=== PATIENT | female | born 1960 | race African-American/Black ===

== ENCOUNTER 2018-10-29 05:39 | Inpatient (IN) | payer OTHER, MEDICAID ==
[~2018-10-29] VITALS: Ht 165.1 cm; Wt 68.0 kg
[2018-10-29] MEDS ORDERED: IPRATROPIUM BROMIDE (0.02%) 0.5MG/2.5ML NEB HHN STA (06:22)
[2018-10-29] MEDS ORDERED: METHYLPREDNISOLONE SOD SUCC 125 MG/2 ML VIAL IV STA (06:22)
[2018-10-29] MEDS ORDERED: ALBUTEROL (0.083%) 2.5MG/3ML NEB HHN STA (06:22)
[2018-10-29 07:09] LABS: BASOPHILS % 0.4 % (0.0-2.0); EOSINOPHILS % 0.5 % (0.0-5.0); HEMATOCRIT. 41.1 % (36.0-48.0); HEMOGLOBIN. 13.2 g/dL (12.0-16.0); LYMPHOCYTES % 11.6 % (20.0-50.0); MEAN CORPUSCULAR HEMOGLOBIN 26.7 pg (28.0-32.0); MEAN CORPUSCULAR VOLUME 83.2 fL (81.0-99.0); MONOCYTES % 7.6 % (2.0-8.0); NEUTROPHILS % 79.9 % (40.0-76.0); PLATELET 183 x1000/uL (130-400); RED BLOOD CELL COUNT 4.94 mill/uL (4.2-5.4); RED CELL DISTRIBUTION WIDTH 15.4 % (11.6-14.6)
[2018-10-29 07:15] LABS: CHLORIDE 109 mEq/L (98-107)
[2018-10-29] MEDS ORDERED: ASPIRIN 81MG TABLET PO ONE (07:45)
[2018-10-29] MEDS ORDERED: ENOXAPARIN 100MG/ML SYR SUBCUT ONE (07:45)
[2018-10-29 11:30] VITALS: BP 137/89
[2018-10-29] MEDS ORDERED: FLUT1BLS3 IH (11:31)
[2018-10-29 11:53] VITALS: BP 137/89
[2018-10-29] MEDS ORDERED: CLONIDINE 0.1MG TABLET PO PRN (13:30)
[2018-10-29] MEDS ORDERED: HYDROCODONE/ACETAMINOPHEN 5/325MG TABLET PO PRN (13:30)
[2018-10-29] MEDS ORDERED: ONDANSETRON HCL 4MG/2ML INJ IV PRN (13:30)
[2018-10-29] MEDS ORDERED: DIPHENHYDRAMINE 50MG/ML VIAL IV PRN (13:30)
[2018-10-29] MEDS ORDERED: IPRATROPIUM/ALBUTEROL 0.5-3(2.5)MG/3ML NEB INH PRN (13:30)
[2018-10-29] MEDS ORDERED: MAGNESIUM/ALUMINUM HYDROXIDE/SIMETHICONE 30ML UDC PO PRN (13:30)
[2018-10-29] MEDS ORDERED: ACETAMINOPHEN 325MG TABLET PO PRN (13:30)
[2018-10-29] MEDS ORDERED: ACETAMINOPHEN 650MG SUPP PR PRN (13:30)
[2018-10-29] MEDS ORDERED: NA PHOS,M-B/NA PHOS,DI-BA ENEMA 118ML PR PRN (13:30)
[2018-10-29] MEDS ORDERED: DOCUSATE SODIUM 100MG CAPSULE PO PRN (13:30)
[2018-10-29] MEDS: DILTIAZEM HCL 30MG TABLET PO SCH ×2 (14:17→21:30)
[2018-10-29] MEDS: ENOXAPARIN 40MG/0.4ML SYR SUBCUT SCH (14:19)
[2018-10-29] MEDS: LORATADINE 10MG TABLET PO SCH (14:19)
[2018-10-29] MEDS: METHYLPREDNISOLONE SOD SUCC 40 MG/ML VIAL IV SCH ×2 (14:20→21:30)
[2018-10-29 16:00] VITALS: BP 112/74
[2018-10-29] MEDS: MONTELUKAST SODIUM 10MG TABLET PO SCH (17:50)
[2018-10-29] MEDS: LEVOFLOXACIN 500MG PREMIX 100 ML IV SCH (17:50)
[2018-10-29 18:15] LABS: CREATINE KINASE MB FRACTION 3.6 ng/mL (0.5-3.6)
[2018-10-29 18:17] LABS: BG BASE EXCESS -1.9 mmol/L (-2.0-2.0); BG DEOXYHEMOGLOBIN 6.6 % (0.0-5.0); BG FRACTION INSPIRED OXYGEN 21; BG HCO3 ACT 21.6 mmol/L (22.0-26.0); BG METHEMOGLOBIN 0.4 % (0.0-1.5); BG OXYGEN SATURATION 93.3 % (92.0-98.5); BG PH 7.433 (7.350-7.450); BG SAMPLE SITE RIGHT BRACHIAL; BG TOTAL HEMOGLOBIN 14.1 g/dL (12.0-18.0); BG VENT MODE ROOM AIR
[2018-10-29 20:00] VITALS: BP 117/81
[2018-10-29] MEDS: BUDESONIDE 0.5MG/2ML NEB HHN SCH ×2 (20:13→20:17)
[2018-10-29] MEDS: IPRATROPIUM/ALBUTEROL 0.5-3(2.5)MG/3ML NEB INH SCH (20:17)
[2018-10-29] MEDS ORDERED: IOHEXOL-350 100 ML BOTTLE ONE (21:42)
[2018-10-29 22:37] LABS: CLARITY URINE CLEAR (CLEAR); COLOR URINE YELLOW (YELLOW); KETONES URINE NEGATIVE (NEGATIVE); LEUKOCYTE ESTERASE URINE NEGATIVE (NEGATIVE); NITRITE URINE NEGATIVE (NEGATIVE); OCCULT BLOOD URINE TRACE (NEGATIVE); PH URINE 6.5 (4.5-8.0); PROTEIN URINE NEGATIVE (NEGATIVE); SPECIFIC GRAVITY URINE 1.041 (1.005-1.030); UROBILINOGEN URINE 0.2 E.U./dL (0.2-1.0)
[2018-10-29 22:46] LABS: *AMPHETAMINES SCREEN URINE NEGATIVE (NEGATIVE); *BARBITURATES SCREEN URINE NEGATIVE (NEGATIVE); *BENZODIAZEPINES SCREEN URINE NEGATIVE (NEGATIVE); *COCAINE SCREEN URINE NEGATIVE (NEGATIVE)
[2018-10-29 22:47] LABS: CANNABINOID URINE SCREEN NEGATIVE (NEGATIVE); METHADONE URINE SCREEN NEGATIVE (NEGATIVE); OPIATES URINE SCREEN NEGATIVE (NEGATIVE); PHENCYCLIDINE URINE SCREEN NEGATIVE (NEGATIVE)
[2018-10-30] VITALS: BP 126/82
[2018-10-30 00:58] LABS: CREATINE KINASE MB FRACTION 3.9 ng/mL (0.5-3.6)
[2018-10-30] MEDS: LORAZEPAM 0.5MG TABLET PO PRN ×2 (01:07→23:46)
[2018-10-30] MEDS: IPRATROPIUM/ALBUTEROL 0.5-3(2.5)MG/3ML NEB INH SCH ×5 (02:05→20:03)
[2018-10-30 04:00] VITALS: BP 101/61
[2018-10-30] MEDS: DILTIAZEM HCL 30MG TABLET PO SCH ×3 (05:35→21:31)
[2018-10-30] MEDS: METHYLPREDNISOLONE SOD SUCC 40 MG/ML VIAL IV SCH ×3 (05:35→21:30)
[2018-10-30 06:35] LABS: HEMATOCRIT. 38.3 % (36.0-48.0); HEMOGLOBIN. 12.3 g/dL (12.0-16.0); MEAN CORPUSCULAR HEMOGLOBIN 26.5 pg (28.0-32.0); MEAN CORPUSCULAR VOLUME 82.7 fL (81.0-99.0); MEAN PLATELET VOLUME 8.6 fl (7.4-10.4); PLATELET 213 x1000/uL (130-400); RED BLOOD CELL COUNT 4.63 mill/uL (4.2-5.4); RED CELL DISTRIBUTION WIDTH 15.7 % (11.6-14.6)
[2018-10-30 06:37] LABS: CHLORIDE 105 mEq/L (98-107)
[2018-10-30 06:47] LABS: LDL CHOLESTEROL 107 mg/dL (5-100); T4 FREE 1.33 ng/dL (0.76-1.46)
[2018-10-30 06:49] LABS: HDL CHOLESTEROL 90 mg/dL (40-59)
[2018-10-30 08:00] VITALS: BP 113/65
[2018-10-30] MEDS: LORATADINE 10MG TABLET PO SCH (08:26)
[2018-10-30] MEDS: ASPIRIN 81MG TABLET PO SCH (08:26)
[2018-10-30] MEDS: ENOXAPARIN 40MG/0.4ML SYR SUBCUT SCH (08:27)
[2018-10-30] MEDS: BUDESONIDE 0.5MG/2ML NEB HHN SCH ×2 (09:50→20:03)
[2018-10-30 11:09] LABS: PLATELET ESTIMATE NORMAL
[2018-10-30 12:00] VITALS: BP 107/73
[2018-10-30 16:00] VITALS: BP 125/84
[2018-10-30] MEDS: MONTELUKAST SODIUM 10MG TABLET PO SCH (16:15)
[2018-10-30] MEDS: LEVOFLOXACIN 500MG PREMIX 100 ML IV SCH (16:15)
[2018-10-30 20:00] VITALS: BP 130/85
[2018-10-30] MEDS: CARVEDILOL 3.125 MG TABLET PO SCH (21:30)
[2018-10-30] MEDS: ATORVASTATIN CALCIUM 10MG TABLET PO SCH (21:30)
[2018-10-31] VITALS: BP 121/82
[2018-10-31 04:00] VITALS: BP 126/83
[2018-10-31] MEDS: DILTIAZEM HCL 30MG TABLET PO SCH ×3 (05:41→21:54)
[2018-10-31] MEDS: METHYLPREDNISOLONE SOD SUCC 40 MG/ML VIAL IV SCH ×3 (05:41→21:53)
[2018-10-31 06:49] LABS: HEMATOCRIT. 38.6 % (36.0-48.0); HEMOGLOBIN. 12.5 g/dL (12.0-16.0); MEAN CORPUSCULAR HEMOGLOBIN 26.6 pg (28.0-32.0); MEAN CORPUSCULAR VOLUME 82.5 fL (81.0-99.0); MEAN PLATELET VOLUME 9.1 fl (7.4-10.4); PLATELET 250 x1000/uL (130-400); RED BLOOD CELL COUNT 4.68 mill/uL (4.2-5.4); RED CELL DISTRIBUTION WIDTH 15.9 % (11.6-14.6)
[2018-10-31 07:07] LABS: CHLORIDE 104 mEq/L (98-107)
[2018-10-31 07:27] LABS: INR 1.1; PROTHROMBIN TIME 10.7 sec (9.1-11.1)
[2018-10-31 08:00] VITALS: BP 126/78
[2018-10-31] MEDS: CARVEDILOL 3.125 MG TABLET PO SCH ×2 (08:38→21:54)
[2018-10-31] MEDS: ENOXAPARIN 40MG/0.4ML SYR SUBCUT SCH (08:38)
[2018-10-31] MEDS: LORATADINE 10MG TABLET PO SCH (08:38)
[2018-10-31] MEDS: ASPIRIN 81MG TABLET PO SCH (08:39)
[2018-10-31] MEDS: BUDESONIDE 0.5MG/2ML NEB HHN SCH ×2 (09:29→20:22)
[2018-10-31] MEDS: IPRATROPIUM/ALBUTEROL 0.5-3(2.5)MG/3ML NEB INH SCH ×3 (09:31→20:22)
[2018-10-31 10:18] LABS: PLATELET ESTIMATE NORMAL
[2018-10-31] MEDS ORDERED: FUROSEMIDE 20MG/2ML VIAL IVP SCH (13:45)
[2018-10-31] MEDS: LORAZEPAM 0.5MG TABLET PO PRN (14:38)
[2018-10-31] MEDS: MONTELUKAST SODIUM 10MG TABLET PO SCH (17:26)
[2018-10-31] MEDS: LEVOFLOXACIN 500MG PREMIX 100 ML IV SCH (17:27)
[2018-10-31 20:00] VITALS: BP 125/78
[2018-10-31] MEDS: ATORVASTATIN CALCIUM 10MG TABLET PO SCH (21:54)
[2018-11-01] VITALS: BP 110/75
[2018-11-01] MEDS: IPRATROPIUM/ALBUTEROL 0.5-3(2.5)MG/3ML NEB INH SCH ×4 (02:00→20:24)
[2018-11-01 04:00] VITALS: BP_SYST 121; BP_SYST 122; BP_DIAS 73; BP_DIAS 86
[2018-11-01] MEDS: METHYLPREDNISOLONE SOD SUCC 40 MG/ML VIAL IV SCH ×3 (06:11→22:07)
[2018-11-01] MEDS: GUAIFENESIN 200MG/10ML SUGAR FREE UDC PO PRN (06:11)
[2018-11-01] MEDS: DILTIAZEM HCL 30MG TABLET PO SCH ×2 (06:12→13:13)
[2018-11-01 06:40] LABS: HEMATOCRIT. 40.5 % (36.0-48.0); MEAN CORPUSCULAR HEMOGLOBIN 26.5 pg (28.0-32.0); MEAN CORPUSCULAR VOLUME 82.4 fL (81.0-99.0); MEAN PLATELET VOLUME 9.1 fl (7.4-10.4); PLATELET 259 x1000/uL (130-400); RED BLOOD CELL COUNT 4.91 mill/uL (4.2-5.4); RED CELL DISTRIBUTION WIDTH 15.5 % (11.6-14.6)
[2018-11-01 07:01] LABS: CHLORIDE 102 mEq/L (98-107)
[2018-11-01 08:00] VITALS: BP 115/71
[2018-11-01] MEDS: BUDESONIDE 0.5MG/2ML NEB HHN SCH (08:00)
[2018-11-01] MEDS: ASPIRIN 81MG TABLET PO SCH (08:18)
[2018-11-01] MEDS: CARVEDILOL 3.125 MG TABLET PO SCH (08:18)
[2018-11-01] MEDS: LORATADINE 10MG TABLET PO SCH (08:18)
[2018-11-01] MEDS: ENOXAPARIN 40MG/0.4ML SYR SUBCUT SCH (08:18)
[2018-11-01 12:00] VITALS: BP 117/74
[2018-11-01] MEDS ORDERED: ACETYLCYSTEINE 200MG/ML 20% VIAL 4ML INH SCH (14:00)
[2018-11-01] MEDS: GUAIFENESIN 600MG ER TABLET PO SCH ×2 (15:00→22:08)
[2018-11-01] MEDS: MONTELUKAST SODIUM 10MG TABLET PO SCH (15:49)
[2018-11-01] MEDS: LEVOFLOXACIN 500MG PREMIX 100 ML IV SCH (15:50)
[2018-11-01 16:00] VITALS: BP 102/67
[2018-11-01 17:42] LABS: PLATELET ESTIMATE NORMAL
[2018-11-01 20:00] VITALS: BP 112/70
[2018-11-01] MEDS: ATORVASTATIN CALCIUM 10MG TABLET PO SCH (22:08)
[2018-11-02] VITALS: BP 118/72
[2018-11-02] MEDS: IPRATROPIUM/ALBUTEROL 0.5-3(2.5)MG/3ML NEB INH SCH ×3 (01:05→20:49)
[2018-11-02 04:00] VITALS: BP 130/61
[2018-11-02] MEDS: METHYLPREDNISOLONE SOD SUCC 40 MG/ML VIAL IV SCH ×3 (05:10→21:25)
[2018-11-02 06:54] LABS: HEMATOCRIT. 37.9 % (36.0-48.0); HEMOGLOBIN. 12.2 g/dL (12.0-16.0); MEAN CORPUSCULAR HEMOGLOBIN 26.9 pg (28.0-32.0); MEAN CORPUSCULAR VOLUME 83.1 fL (81.0-99.0); MEAN PLATELET VOLUME 8.9 fl (7.4-10.4); PLATELET 198 x1000/uL (130-400); RED BLOOD CELL COUNT 4.56 mill/uL (4.2-5.4); RED CELL DISTRIBUTION WIDTH 15.2 % (11.6-14.6)
[2018-11-02 07:47] LABS: CHLORIDE 104 mEq/L (98-107)
[2018-11-02 08:00] VITALS: BP 111/61
[2018-11-02] MEDS: ASPIRIN 81MG TABLET PO SCH (09:21)
[2018-11-02] MEDS: GUAIFENESIN 600MG ER TABLET PO SCH ×2 (09:22→21:25)
[2018-11-02] MEDS: LORATADINE 10MG TABLET PO SCH (09:22)
[2018-11-02] MEDS: ENOXAPARIN 40MG/0.4ML SYR SUBCUT SCH (09:23)
[2018-11-02 11:43] LABS: PLATELET ESTIMATE NORMAL
[2018-11-02 12:00] VITALS: BP 123/78
[2018-11-02] MEDS: GUAIFENESIN 200MG/10ML SUGAR FREE UDC PO PRN (13:18)
[2018-11-02 16:00] VITALS: BP 123/80
[2018-11-02] MEDS: MONTELUKAST SODIUM 10MG TABLET PO SCH (16:31)
[2018-11-02] MEDS: LEVOFLOXACIN 500MG PREMIX 100 ML IV SCH (16:32)
[2018-11-02 20:00] VITALS: BP 119/69
[2018-11-02] MEDS: ATORVASTATIN CALCIUM 10MG TABLET PO SCH (21:25)
[2018-11-03] VITALS: BP 133/88
[2018-11-03] MEDS: IPRATROPIUM/ALBUTEROL 0.5-3(2.5)MG/3ML NEB INH SCH ×3 (02:50→16:29)
[2018-11-03 04:00] VITALS: BP 121/70
[2018-11-03] MEDS: METHYLPREDNISOLONE SOD SUCC 40 MG/ML VIAL IV SCH (05:34)
[2018-11-03 08:00] VITALS: BP 151/90
[2018-11-03] MEDS: ENOXAPARIN 40MG/0.4ML SYR SUBCUT SCH (08:41)
[2018-11-03] MEDS: ASPIRIN 81MG TABLET PO SCH (09:33)
[2018-11-03] MEDS: GUAIFENESIN 600MG ER TABLET PO SCH (09:33)
[2018-11-03] MEDS: LORATADINE 10MG TABLET PO SCH (09:33)
[2018-11-03 12:00] VITALS: BP 113/70
[2018-11-03 14:54] LABS: CHLORIDE 106 mEq/L (98-107)
[2018-11-03 14:57] LABS: HEMATOCRIT 38.8 % (36.0-48.0); HEMOGLOBIN 12.3 g/dL (12.0-16.0); MEAN CORPUSCULAR HEMOGLOBIN 26.5 pg (28.0-32.0); MEAN CORPUSCULAR VOLUME 83.2 fL (81.0-99.0); PLATELET 194 x1000/uL (130-400); RED BLOOD CELL COUNT 4.66 mill/uL (4.2-5.4); RED CELL DISTRIBUTION WIDTH 15.3 % (11.6-14.6)
[2018-11-03 16:00] VITALS: BP 131/95
[2018-11-03] MEDS ORDERED: METHYLPREDNISOLONE SOD SUCC 40 MG/ML VIAL IV SCH (18:00)
== END 2018-11-03 17:26 | disposition home or self-care (01) | DRG 280 ==
LOC: ER 05:50 → ENRESERV 08:39 → 7WST 08:39
PROVIDERS: ADMIT Internal Medicine; ATTEND Internal Medicine
DX: I21.4 Non-ST elevation (NSTEMI) myocardial infarction (principal); J18.9 Pneumonia, unspecified organism; J96.90 Respiratory failure, unspecified, unspecified whether with hypoxia or hypercapnia; R65.10 Systemic inflammatory response syndrome (SIRS) of non-infectious origin without acute organ dysfunction; I10 Essential (primary) hypertension; E86.0 Dehydration; R73.9 Hyperglycemia, unspecified; F17.210 Nicotine dependence, cigarettes, uncomplicated; E78.5 Hyperlipidemia, unspecified; I20.0 Unstable angina; J43.9 Emphysema, unspecified; D72.825 Bandemia; J06.9 Acute upper respiratory infection, unspecified; Z71.6 Tobacco abuse counseling; Z98.891 History of uterine scar from previous surgery
CPT/HCPCS: 36415; 36600; 71045; 71275; 80048; 80061; 80305; 82375; 82550; 82553; 82805; 83036; 83735; 83880; 84439; 84443; 84484; 85027; 87070; 87804; 93005; 93306; 93970; 94618; 94640; 96374; 97162; 99291; 99406; J1650; J1940; J1956; J2920; J2930; J7040; J7050; J7608; J7611; J7620; J7626; Q9967

== ENCOUNTER 2023-04-07 11:40 | Inpatient (IN) | payer MEDICARE, MEDICAID ==
[~2023-04-07] VITALS: Ht 165.1 cm; Wt 48.1 kg
[~2023-04-07 11:40] MED LIST: FLUT1BLS3 IH
[2023-04-07] MEDS ORDERED: METHYLPREDNISOLONE SOD SUCC 125MG/2ML (ACT-O-VIAL) IV NR (12:14)
[2023-04-07] MEDS ORDERED: IPRATROPIUM BROMIDE (0.02%) 0.5MG/2.5ML NEB HHN NR (12:14)
[2023-04-07] MEDS ORDERED: ALBUTEROL (0.083%) 2.5MG/3ML NEB HHN NR (12:14)
[2023-04-07] MEDS ORDERED: MAGNESIUM 2 G PREMIX 50 ML IV NR (12:14)
[2023-04-07] MEDS ORDERED: AZITHROMYCIN 500MG/250ML 250 ML IV NR (12:15)
[2023-04-07] MEDS ORDERED: METHYLPREDNISOLONE SOD SUCC 125MG VIAL IV NR (13:00)
[2023-04-07 14:00] LABS: BASOPHILS % 0.2 % (0.0-2.0); EOSINOPHILS % 0.4 % (0.0-5.0); HEMATOCRIT. 38.2 % (36.0-48.0); LYMPHOCYTES % 11.1 % (20.0-50.0); MEAN CORPUSCULAR HEMOGLOBIN 26.3 pg (28.0-32.0); MEAN CORPUSCULAR HGB CONC 31.4 g/dL (31.0-37.0); MEAN CORPUSCULAR VOLUME 83.6 fL (81.0-99.0); MEAN PLATELET VOLUME 8.5 fl (7.4-10.4); NEUTROPHILS % 81.3 % (40.0-76.0); PLATELET 164 x1000/uL (130-400); RED BLOOD CELL COUNT 4.57 mill/uL (4.2-5.4); RED CELL DISTRIBUTION WIDTH 14.7 % (11.6-14.6)
[2023-04-07 14:07] LABS: CHLORIDE 105 mEq/L (98-107); INDEX HEMOLYSI 1 (1-3); INDEX ICTERIC 1 (1-4); INDEX LIPEMIC 1 (1-3); POTASSIUM 3.4 mEq/L (3.5-5.1); SODIUM 141 mEq/L (136-145)
[2023-04-07 14:18] LABS: ALANINE AMINOTRANSFERASE 19 IU/L (13-61); ALBUMIN 3.6 g/dL (3.4-5.0); ASPARTATE AMINOTRANSFERASE 18 IU/L (15-37); BILIRUBIN TOTAL 0.3 mg/dL (0.1-1.0); CARBON DIOXIDE 33 mEq/L (21-32); CREATININE 0.6 mg/dL (0.6-1.3); GLUCOSE 107 mg/dL (70-105); NT PRO B-TYPE NATRIURETIC PEP 76 pg/mL (5-125); PROTEIN TOTAL 6.6 g/dL (6.0-8.3); UREA NITROGEN BLOOD 12 mg/dL (7-21)
[2023-04-07 14:29] LABS: TROPONIN I HIGH SENSITIVITY 94 ng/L (<54)
[2023-04-07 15:15] VITALS: PULSE 82; RESP 18; O2SAT 95
[2023-04-07] MEDS ORDERED: IPRATROPIUM/ALBUTEROL 0.5-3(2.5)MG/3ML NEB HHN PRN (16:45)
[2023-04-07 20:06] VITALS: PULSE 78; RESP 20; O2SAT 92
[2023-04-07] MEDS: IPRATROPIUM/ALBUTEROL 0.5-3(2.5)MG/3ML NEB HHN SCH (20:06)
[2023-04-07] MEDS: METHYLPREDNISOLONE SOD SUCC 40MG VIAL IV SCH (22:39)
[2023-04-08] VITALS (11 sets, daily range): BP systolic 99–127; BP diastolic 65–76; PULSE 69–84; RESP 17–24; TEMP 97–98.2; O2SAT 96
[2023-04-08] MEDS: IPRATROPIUM/ALBUTEROL 0.5-3(2.5)MG/3ML NEB HHN SCH ×4 (02:26→20:52)
[2023-04-08] MEDS ORDERED: POTASSIUM CHLORIDE 20MEQ TABLET SR PO NR (03:15)
[2023-04-08] MEDS ORDERED: MONT-39 PO (03:28)
[2023-04-08] MEDS ORDERED: PRAV10TA35 PO (03:28)
[2023-04-08] MEDS ORDERED: AMLO2.5T45 PO (03:28)
[2023-04-08] MEDS ORDERED: ESCI-7 PO (03:28)
[2023-04-08] MEDS: METHYLPREDNISOLONE SOD SUCC 40MG VIAL IV SCH (06:37)
[2023-04-08 07:24] LABS: HEMATOCRIT. 34.9 % (36.0-48.0); HEMOGLOBIN. 11.2 g/dL (12.0-16.0); MEAN CORPUSCULAR HEMOGLOBIN 26.8 pg (28.0-32.0); MEAN CORPUSCULAR HGB CONC 32.1 g/dL (31.0-37.0); MEAN CORPUSCULAR VOLUME 83.4 fL (81.0-99.0); MEAN PLATELET VOLUME 9.2 fl (7.4-10.4); PLATELET 153 x1000/uL (130-400); RED BLOOD CELL COUNT 4.19 mill/uL (4.2-5.4); RED CELL DISTRIBUTION WIDTH 14.8 % (11.6-14.6); WHITE BLOOD COUNT 5.7 x1000/uL (4.5-11.0)
[2023-04-08 07:30] LABS: DIFFERENTIAL COMMENT 1
[2023-04-08 08:00] LABS: CALCIUM 8.7 mg/dL (8.5-10.1); CARBON DIOXIDE 26 mEq/L (21-32); CHLORIDE 104 mEq/L (98-107); CREATININE 0.5 mg/dL (0.6-1.3); GLUCOSE 194 mg/dL (70-105); INDEX HEMOLYSI 1 (1-3); INDEX ICTERIC 1 (1-4); INDEX LIPEMIC 1 (1-3); POTASSIUM 3.8 mEq/L (3.5-5.1); SODIUM 139 mEq/L (136-145); UREA NITROGEN BLOOD 13 mg/dL (7-21)
[2023-04-08] MEDS ORDERED: ENOXAPARIN 40MG/0.4ML SYR SUBCUT SCH (09:00)
[2023-04-08] MEDS: CITALOPRAM HYDROBROMIDE 10MG TABLET PO SCH (09:15)
[2023-04-08 09:56] LABS: TROPONIN I HIGH SENSITIVITY 129 ng/L (<54)
[2023-04-08 17:09] LABS: PLATELET ESTIMATE NORMAL
[2023-04-08] MEDS: BUDESONIDE 0.5MG/2ML NEB HHN SCH (20:52)
[2023-04-08] MEDS: ATORVASTATIN CALCIUM 10MG TABLET PO SCH (21:00)
[2023-04-09] VITALS (9 sets, daily range): BP systolic 112–124; BP diastolic 62–74; PULSE 66–76; RESP 16–20; TEMP 97.1–97.7; O2SAT 97
[2023-04-09] MEDS: IPRATROPIUM/ALBUTEROL 0.5-3(2.5)MG/3ML NEB HHN SCH ×3 (01:53→10:18)
[2023-04-09] MEDS ORDERED: PREDNISONE 20MG TABLET PO SCH (09:00)
[2023-04-09] MEDS ORDERED: ENOXAPARIN 30MG/0.3ML SYR SUBCUT SCH (09:00)
[2023-04-09] MEDS: BUDESONIDE 0.5MG/2ML NEB HHN SCH (09:16)
[2023-04-09] MEDS: CITALOPRAM HYDROBROMIDE 10MG TABLET PO SCH (10:31)
[2023-04-09 15:45] LABS: BG BASE EXCESS 4.6 mmol/L (-2.0-2.0); BG CARBOXYHEMOGLOBIN 0.2 % (0.5-1.5); BG DEOXYHEMOGLOBIN 5.9 % (0.0-5.0); BG HCO3 ACT 29.7 mmol/L (22.0-26.0); BG METHEMOGLOBIN 0.5 % (0.0-1.5); BG OXYGEN SATURATION 94.1 % (92.0-98.5); BG OXYHEMOGLOBIN 93.4 % (94.0-97.0); BG PH 7.428 (7.350-7.450); BG PO2 66.1 mmHg (75.0-100.0); BG SAMPLE SITE RIGHT BRACHIAL; BG TOTAL HEMOGLOBIN 12.5 g/dL (12.0-18.0); BG VENT MODE ROOM AIR
[2023-04-09] MEDS ORDERED: P20 PO (18:16)
[2023-04-09] MEDS ORDERED: FLUT1BLS3 IH (18:16)
[2023-04-09] MEDS: ATORVASTATIN CALCIUM 10MG TABLET PO SCH (20:07)
== END 2023-04-09 20:30 | disposition home or self-care (01) | DRG 189 ==
LOC: ER 11:40 → MICUSO 13:39 → EDBEDREQTM 13:53 → EDBEDREQ 13:53 → 7EST 04-08 02:40
PROVIDERS: ADMIT Internal Medicine; ATTEND Internal Medicine
DX: J96.21 Acute and chronic respiratory failure with hypoxia (principal); J44.1 Chronic obstructive pulmonary disease with (acute) exacerbation; I10 Essential (primary) hypertension; E78.00 Pure hypercholesterolemia, unspecified; E78.5 Hyperlipidemia, unspecified; F41.9 Anxiety disorder, unspecified; F17.210 Nicotine dependence, cigarettes, uncomplicated; Z99.81 Dependence on supplemental oxygen
CPT/HCPCS: 36415; 36600; 71045; 80048; 80053; 82375; 82805; 83880; 84484; 85025; 93005; 94640; 94644; 99285; J0456; J1650; J2920; J2930; J3475; J7512; J7626